=== PATIENT | male | born 1960 | race Caucasian/White ===

== ENCOUNTER 2017-10-08 17:51 | Emergency (ER) | payer BC ==
[~2017-10-08] VITALS: Ht 180.3 cm; Wt 81.6 kg
[~2017-10-08 17:51] MED LIST: ANUSOL-HC25 MG/SUPP RC
[2017-10-08 17:56] VITALS: BP 128/75; Ht 180.3 cm; Wt 81.6 kg
== END 2017-10-08 22:34 | disposition left against medical advice (07) ==
LOC: ED 17:51
DX: Z53.21 Procedure and treatment not carried out due to patient leaving prior to being seen by health care provider (principal)